=== PATIENT | female | born 1980 | race African-American/Black ===

== ENCOUNTER → 2019-10-25 | Outpatient (CLI) | payer OTHER ==
--- NOTE | 2019-10-25 09:05 | RAD ---
Transabdominal and transvaginal ultrasound the pelvis. HISTORY: Z01.419, and 93.9 abnormal uterine bleeding Transabdominal ultrasound was performed. Bladder was not well-distended. Uterus and ovaries are poorly seen transabdominally. Transvaginal imaging was performed for further evaluation. Uterus measured 8.6 x 5.5 x 4.2 cm. There is a nabothian cysts at the cervix. Endometrium was 1.2 cm, mildly prominent towards the fundus pinning on the phase of the menstrual cycle. There is a uterine leiomyoma in the anterior myometrium measuring 1.8 x 1.6 cm extending to the margin of the endometrium. A definite mass at the cervix was not identified by ultrasound. Right ovary was identified measuring 3.1 x 2.5 x 2.5 cm. There is flow in the right ovary with Doppler. There is no right ovarian mass noted. Left ovary measured 3.1 x 2.6 x 2.6 cm. There is flow in the left ovary with Doppler. There is no left ovarian mass or cyst. IMPRESSION: 1. Uterine leiomyoma. 2. Nabothian cysts. 3. No other abnormality noted. Electronically signed by: Diego Estes MD (10/25/2019 9:03 AM) [id number]
== END | disposition home or self-care (01) ==
LOC: US 07:41
PROVIDERS: ATTEND Obstetrics & Gynecology
DX: Z01.419 Encounter for gynecological examination (general) (routine) without abnormal findings (principal); D25.9 Leiomyoma of uterus, unspecified; N88.8 Other specified noninflammatory disorders of cervix uteri
CPT/HCPCS: 76830; 76856

== ENCOUNTER → 2021-07-14 | Outpatient (CLI) | payer OTHER ==
[~2021-07-14] MED LIST: cefTRIAXone IM 500 MG VIAL. IM ONE
== END ==
LOC: OPS 15:39
PROVIDERS: ATTEND Obstetrics & Gynecology
DX: A54.9 Gonococcal infection, unspecified (principal)
CPT/HCPCS: 96372; J0696